=== PATIENT | female | born 1985 | race Asian ===

== ENCOUNTER 2017-05-06 22:03 | Emergency (ER) | payer SELFPAY ==
[~2017-05-06] VITALS: Ht 160 cm; Wt 54.4 kg
[2017-05-06 22:15] VITALS: BP 135/89
--- NOTE | 2017-05-06 22:28 | Emergency Room Report ---
History of Present Illness General Chief Complaint: Allergic Reaction Source: Patient Present Illness HPI Is a 32-year-old female with no past medical history. She presents with allergic reaction. She was a nearby restaurant eating seafood. She had oyster and she said she started having some pain is in her body. She had other seafood and developed an allergic reaction. Her eyes were swollen and itchy to the body. No tongue edema. No respiratory complaint. The restaurant gave her 25 mg of Benadryl. EMS gave her 0.3 of epinephrine IM. Patient never had this problem before. Had similar food before without any issue. Allergies: Coded Allergies: No Known Allergies (Unverified , 05/06/17) Patient History Past Medical History: see triage record, old chart reviewed Past Surgical History: none Pertinent Family History: none Social History: Denies: smoking Now: No Immunizations: other Reviewed Nursing Documentation: PMH: Agreed, PSxH: Agreed Nursing Documentation-PMH Past Medical History: No Stated History Review of Systems Eye: Denies: eye pain, blurred vision ENT: Denies: ear pain, nose congestion, throat swelling Respiratory: Denies: cough, shortness of breath Cardiovascular: Denies: chest pain, palpitations Gastrointestinal: Denies: abdominal pain, diarrhea, nausea, vomiting Musculoskeletal: Denies: back pain, joint pain Skin: Reports: rash Neurological: Denies: headache, numbness Endocrine: Denies: increased thirst, increased urine Hematologic/Lymphatic: Denies: easy bruising All Other Systems: negative except mentioned in HPI Physical Exam Vital Signs Date Time Temp Pulse Resp B/P (MAP) Pulse Ox O2 Delivery O2 Flow Rate FiO2 05/06/17 22:04 97.9 70 18 135/89 100 Room Air 97.9 vitals normal Sp02 EP Interpretation: reviewed, normal General Appearance: well appearing, no apparent distress, alert Head: normocephalic, atraumatic Eyes: bilateral eye PERRL, bilateral eye EOMI, bilateral eye other - Mild periorbital edema. ENT: hearing grossly normal, normal pharynx, other - No tongue edema. Neck: full range of motion, supple, no meningismus Respiratory: chest non-tender, lungs clear, normal breath sounds Cardiovascular #1: regular rate, rhythm, no murmur Gastrointestinal: normal bowel sounds, non tender, no mass, no organomegaly, no bruit, non-distended Musculoskeletal: back normal, gait/station normal, normal range of motion Psychiatric: mood/affect normal Skin: warm/dry Medical Decision Making Diagnostic Impression: Primary Impression: Allergic reaction Qualified Codes: T78.40XA - Allergy, unspecified, initial encounter ER Course This patient presents with allergic reaction. Better now. No evidence of anaphylactic shock. No evidence of respiratory issue. We'll discharge home. Last Vital Signs Date Time Temp Pulse Resp B/P (MAP) Pulse Ox O2 Delivery O2 Flow Rate FiO2 05/06/17 22:15 97.9 18 135/89 100 Room Air 97.9 05/06/17 22:04 70 Status: improved Disposition: HOME, SELF-CARE Condition: Stable Scripts Prednisone* (PREDNISONE*) 20 Mg Tablet 40 MG ORAL DAILY, #6 TAB Prov: VALENCIA ROCK M.D. 05/07/17 Diphenhydramine Hcl* (BENADRYL*) 25 Mg Capsule 50 MG ORAL Q6H Y for Itching, #30 CAP Prov: VALENCIA ROCK M.D. 05/07/17 Patient Instructions: Food Allergy Additional Instructions: Followup with your [facility] in 3-5 days for recheck if not better. Return if worse. VALENCIA ROCK M.D. May 06, 2017 22:28
[2017-05-06] MEDS ORDERED: Solu-MEDROL 125mg Inj IVP ONE (22:30)
[2017-05-06] MEDS ORDERED: DiphenhydrAMINE 50mg/ml Inj IVP ONE (22:30)
[2017-05-07] MEDS ORDERED: BENADRYL25 MG ORAL (00:22)
[2017-05-07] MEDS ORDERED: PREDNISONE20 MG ORAL (00:22)
[2017-05-07 00:32] VITALS: BP 135/89
== END 2017-05-07 00:32 | disposition home or self-care (01) ==
LOC: EDBD 22:03 → EMR 22:19
DX: T78.40XA Allergy, unspecified, initial encounter (principal); X58.XXXA Exposure to other specified factors, initial encounter
CPT/HCPCS: 96374; 96375; 99284; J1200; J2930